=== PATIENT | male | born 1980 | race Two or more races ===

== ENCOUNTER 2017-09-21 13:36 | Emergency (ER) | payer OTHER ==
[~2017-09-21] VITALS: Ht 198.1 cm; Wt 138.3 kg
[2017-09-21 14:57] VITALS: BP 151/106
[2017-09-21 15:00] LABS: BASOPHILS # (AUTO) 0.05 x10^3/uL (0-0.1); BASOPHILS % (AUTO) 1 % (0-1); EOSINOPHILS # (AUTO) 0.19 x10^3/uL (0-0.4); EOSINOPHILS % (AUTO) 2 % (1-7); LYMPHOCYTES # (AUTO) 1.98 x10^3/uL (1-3.4); LYMPHOCYTES % (AUTO) 21 % (22-44); MD NO; MEAN CORPUSCULAR HEMOGLOBIN 30.2 pg (27.5-34.5); MEAN CORPUSCULAR HGB CONC 33.9 g/dL (33.2-36.2); MEAN CORPUSCULAR VOLUME 89.1 fL (81-97); MEAN PLATELET VOLUME 9.5 fL (7.4-10.4); MONOCYTES # (AUTO) 0.72 x10^3/uL (0.2-0.8); MONOCYTES % (AUTO) 8 % (2-9); NEUTROPHILS % (AUTO) 69 % (42-75); PLATELET COUNT 232 x10^3/uL (130-400); RED BLOOD COUNT 5.06 x10^6/uL (4.38-5.82)
[2017-09-21 15:10] LABS: ANION GAP 6 mmol/L (5-15); CALCIUM 8.6 mg/dL (8.5-10.1); CHLORIDE 109 mmol/L (98-107); CREATININE 1.04 mg/dL (0.7-1.3)
[2017-09-21 16:17] LABS: MICROSCOPIC NOT IND
[2017-09-21 16:35] LABS: CULTURE INDICATED? NO
== END 2017-09-21 17:15 | disposition home or self-care (01) ==
LOC: ED 16:30
DX: I86.1 Scrotal varices (principal); R22.2 Localized swelling, mass and lump, trunk
CPT/HCPCS: 36415; 76870; 80048; 81003; 82040; 85025; 93975; 99285